=== PATIENT | male | born 1975 | race Caucasian/White ===

== ENCOUNTER 2016-12-10 13:58 | Emergency (ER) | payer MEDICAID ==
[~2016-12-10] VITALS: Ht 193 cm; Wt 112.4 kg
[2016-12-10] MEDS ORDERED: SODIUM CHLORIDE 0.9% 1,000 ML IV ONE (14:14)
[2016-12-10] MEDS ORDERED: FAMOTIDINE 20 MG/2 ML IVP ONE (14:30)
[2016-12-10] MEDS ORDERED: MORPHINE SULFATE 4 MG/ML, 1ML IVPush PRN (14:30)
[2016-12-10] MEDS ORDERED: ONDANSETRON 2MG/ML, 2ML IVPush ONE (14:30)
[2016-12-10] MEDS ORDERED: MAALOX/HYOSCYAMINE/LIDOCAINE 45 ML BOTTLE PO ONE (14:30)
[2016-12-10] MEDS ORDERED: MAALOX/HYOSCYAMINE/LIDOCAINE 45 ML BOTTLE ONE (14:36)
[2016-12-10] MEDS ORDERED: ONDANSETRON 2MG/ML, 2ML ONE (14:36)
[2016-12-10] MEDS ORDERED: FAMOTIDINE 20 MG/2 ML ONE (14:36)
[2016-12-10] MEDS ORDERED: MORPHINE SULFATE 4 MG/ML, 1ML ONE (14:36)
[2016-12-10 14:46] LABS: HEMOGLOBIN 15.4 g/dL (13.7-18.0)
[2016-12-10 14:58] LABS: ASPARTATE AMINO TRANSFERASE 16 U/L (15-37); BLOOD UREA NITROGEN 9 mg/dL (7-18)
[2016-12-10 15:04] LABS: IS PT STATUS REG ER OR PRE ER? YES
[2016-12-10 15:17] VITALS: BP 101/44
== END 2016-12-10 15:41 | disposition home or self-care (01) ==
LOC: ED 14:20
DX: K21.0 Gastro-esophageal reflux disease with esophagitis (principal); R10.13 Epigastric pain; K80.20 Calculus of gallbladder without cholecystitis without obstruction; E11.9 Type 2 diabetes mellitus without complications; Z87.891 Personal history of nicotine dependence
CPT/HCPCS: 36415; 71010; 76700; 80053; 83690; 84484; 85025; 85610; 86677; 93005; 96361; 96374; 96375; 99285; J2405; J7030; S0028

== ENCOUNTER 2017-07-22 17:01 | Inpatient (IN) | payer MEDICAID ==
[~2017-07-22] VITALS: Ht 193 cm; Wt 94.4 kg
[2017-07-22 17:45] LABS: HEMATOCRIT 53.5 % (39.2-51.8); HEMOGLOBIN 17.9 g/dL (13.7-18.0); WHITE BLOOD COUNT 14.3 x10^3/uL (3.4-10)
[2017-07-22 17:58] LABS: ACETAMINOPHEN < 2 mcg/mL (10-30)
[2017-07-22 18:00] LABS: IS PT STATUS REG ER OR PRE ER? YES
[2017-07-22] MEDS ORDERED: LABETALOL 5MG/ML, 20ML ONE (18:00)
[2017-07-22] MEDS: LABETALOL 5MG/ML, 20ML IVPush PRN ×2 (18:03→20:17)
[2017-07-22] MEDS ORDERED: SODIUM CHLORIDE 0.9% 1,000 ML IV ONE (18:24)
[2017-07-22] MEDS ORDERED: ASPIRIN 81 MG TABLET CHEW PO ONE (18:30)
[2017-07-22] MEDS ORDERED: SODIUM CHLORIDE FLUSH 10ML SYR IVF PRN (18:30)
[2017-07-22] MEDS ORDERED: POLYETHYLENE GLYCOL 17 GM PACKET PO PRN (20:00)
[2017-07-22 20:43] VITALS: BP 145/87
[2017-07-22] MEDS: POTASSIUM CHLORIDE 20 MEQ in SODIUM CHLORIDE 0.45% 1,000 ML IV SCH (22:33)
[2017-07-22] MEDS: ATORVASTATIN 80 MG TABLET PO SCH (22:33)
[2017-07-22] MEDS: INSULIN ASPART 100 UNITS/ML, PEN SQ-INSULIN SCH (22:33)
[2017-07-23] VITALS (11 sets, daily range): BP systolic 123–163; BP diastolic 75–95
[2017-07-23] MEDS: POTASSIUM CHLORIDE 20 MEQ in SODIUM CHLORIDE 0.45% 1,000 ML IV SCH ×3 (05:47→23:27)
[2017-07-23] MEDS: ASPIRIN 325 MG TABLET PO SCH (05:47)
[2017-07-23 06:00] LABS: BLOOD UREA NITROGEN 18 mg/dL (7-18)
[2017-07-23] MEDS: INSULIN ASPART 100 UNITS/ML, PEN SQ-INSULIN SCH ×4 (08:20→20:59)
[2017-07-23] MEDS: LISINOPRIL 20 MG TABLET PO SCH (08:21)
[2017-07-23] MEDS: HYDROCHLOROTHIAZIDE 12.5 MG CAPSULE PO SCH (08:21)
[2017-07-23] MEDS: metFORMIN 500 MG TABLET PO SCH ×2 (08:21→16:27)
[2017-07-23] MEDS ORDERED: SENNA/DOCUSATE TABLET PO SCH (09:00)
[2017-07-23] MEDS: ENALAPRILAT 1.25 MG/ML, 2ML IVPush PRN ×4 (11:25→21:51)
[2017-07-23] MEDS: ATORVASTATIN 80 MG TABLET PO SCH (20:55)
[2017-07-24] VITALS (9 sets, daily range): BP systolic 127–165; BP diastolic 72–92
[2017-07-24] MEDS: LABETALOL 5MG/ML, 20ML IVPush PRN ×4 (01:16→20:52)
[2017-07-24] MEDS: ASPIRIN 325 MG TABLET PO SCH (05:12)
[2017-07-24] MEDS: INSULIN ASPART 100 UNITS/ML, PEN SQ-INSULIN SCH ×4 (07:00→20:53)
[2017-07-24] MEDS: POTASSIUM CHLORIDE 20 MEQ in SODIUM CHLORIDE 0.45% 1,000 ML IV SCH ×2 (08:10→18:07)
[2017-07-24] MEDS: LISINOPRIL 20 MG TABLET PO SCH (08:36)
[2017-07-24] MEDS: HYDROCHLOROTHIAZIDE 12.5 MG CAPSULE PO SCH (08:36)
[2017-07-24] MEDS: metFORMIN 500 MG TABLET PO SCH ×2 (08:37→18:06)
[2017-07-24] MEDS: ATORVASTATIN 80 MG TABLET PO SCH (20:52)
[2017-07-24] MEDS: ENALAPRILAT 1.25 MG/ML, 2ML IVPush PRN (22:46)
[2017-07-25 00:49] VITALS: BP 130/75
[2017-07-25] MEDS: POTASSIUM CHLORIDE 20 MEQ in SODIUM CHLORIDE 0.45% 1,000 ML IV SCH ×2 (01:46→08:09)
[2017-07-25] MEDS: ASPIRIN 325 MG TABLET PO SCH (05:17)
[2017-07-25 05:25] LABS: HEMATOCRIT 46.7 % (39.2-51.8); HEMOGLOBIN 15.9 g/dL (13.7-18.0); WHITE BLOOD COUNT 14.9 x10^3/uL (3.4-10)
[2017-07-25 05:43] LABS: BLOOD UREA NITROGEN 10 mg/dL (7-18)
[2017-07-25] MEDS: INSULIN ASPART 100 UNITS/ML, PEN SQ-INSULIN SCH ×4 (07:00→20:20)
[2017-07-25 07:55] VITALS: BP 129/80
[2017-07-25] MEDS: metFORMIN 500 MG TABLET PO SCH ×2 (09:00→17:44)
[2017-07-25] MEDS: LISINOPRIL 20 MG TABLET PO SCH (09:01)
[2017-07-25] MEDS: HYDROCHLOROTHIAZIDE 12.5 MG CAPSULE PO SCH (09:01)
[2017-07-25 12:35] VITALS: BP 137/84
[2017-07-25] MEDS: NS + 20MEQ KCL 1,000 ML IV SCH (18:48)
[2017-07-25] MEDS: ATORVASTATIN 80 MG TABLET PO SCH (20:17)
[2017-07-25 20:49] VITALS: BP 152/87
[2017-07-25 22:42] VITALS: BP 147/82
[2017-07-25] MEDS: LABETALOL 5MG/ML, 20ML IVPush PRN (22:43)
[2017-07-26 00:13] VITALS: BP 139/78
[2017-07-26 02:18] VITALS: BP 147/83
[2017-07-26] MEDS: ENALAPRILAT 1.25 MG/ML, 2ML IVPush PRN (02:33)
[2017-07-26 03:36] VITALS: BP 116/66
[2017-07-26] MEDS: NS + 20MEQ KCL 1,000 ML IV SCH ×3 (04:08→17:27)
[2017-07-26] MEDS: ASPIRIN 81 MG TABLET EC PO SCH (05:17)
[2017-07-26] MEDS: INSULIN ASPART 100 UNITS/ML, PEN SQ-INSULIN SCH ×4 (07:00→20:53)
[2017-07-26 07:25] LABS: HEMATOCRIT 46.2 % (39.2-51.8); HEMOGLOBIN 15.7 g/dL (13.7-18.0)
[2017-07-26] MEDS ORDERED: metFORMIN 500 MG TABLET PO SCH (08:00)
[2017-07-26 08:17] VITALS: BP 135/87
[2017-07-26] MEDS: LISINOPRIL 20 MG TABLET PO SCH (10:18)
[2017-07-26] MEDS: HYDROCHLOROTHIAZIDE 12.5 MG CAPSULE PO SCH (10:18)
[2017-07-26 13:34] VITALS: BP 133/90
[2017-07-26] MEDS ORDERED: ASPI-621 PO (14:56)
[2017-07-26] MEDS ORDERED: GLYB3TAB3 PO (14:56)
[2017-07-26] MEDS ORDERED: HYDR12.53 PO (14:56)
[2017-07-26] MEDS ORDERED: LISI-170 PO (14:56)
[2017-07-26] MEDS ORDERED: ATOR-2 PO (14:56)
[2017-07-26 20:00] VITALS: BP 142/83
[2017-07-26] MEDS: ATORVASTATIN 80 MG TABLET PO SCH (20:53)
[2017-07-27] MEDS: NS + 20MEQ KCL 1,000 ML IV SCH ×2 (01:29→10:40)
[2017-07-27 02:00] VITALS: BP 148/89
[2017-07-27] MEDS: ASPIRIN 81 MG TABLET EC PO SCH (06:10)
[2017-07-27] MEDS: INSULIN ASPART 100 UNITS/ML, PEN SQ-INSULIN SCH ×2 (07:00→11:35)
[2017-07-27 08:24] VITALS: BP 150/97
[2017-07-27] MEDS: HYDROCHLOROTHIAZIDE 12.5 MG CAPSULE PO SCH (08:30)
[2017-07-27] MEDS: LISINOPRIL 20 MG TABLET PO SCH (08:30)
[2017-07-27 14:30] VITALS: BP 153/94
== END 2017-07-27 16:10 | DRG 65 ==
LOC: ED 18:53 → EDIP 19:00 → 4WST 20:40
PROVIDERS: ADMIT Family Medicine; ATTEND Family Medicine
DX: I63.511 Cerebral infarction due to unspecified occlusion or stenosis of right middle cerebral artery (principal); D68.59 Other primary thrombophilia; G81.94 Hemiplegia, unspecified affecting left nondominant side; I11.9 Hypertensive heart disease without heart failure; R41.4 Neurologic neglect syndrome; D72.829 Elevated white blood cell count, unspecified; E11.9 Type 2 diabetes mellitus without complications; E78.5 Hyperlipidemia, unspecified; H53.40 Unspecified visual field defects; K21.9 Gastro-esophageal reflux disease without esophagitis; R29.810 Facial weakness; Z79.82 Long term (current) use of aspirin; Z79.84 Long term (current) use of oral hypoglycemic drugs; Z79.899 Other long term (current) drug therapy; Z87.891 Personal history of nicotine dependence; Z88.8 Allergy status to other drugs, medicaments and biological substances
CPT/HCPCS: 36415; 70450; 71010; 80047; 80048; 80061; 80307; 80329; 81001; 81240; 81241; 82962; 83036; 83605; 84443; 84484; 85025; 85303; 85306; 85610; 85730; 87324; 93005; 93306; 93880; 96374; J1815; J3480; G0479; G0480